=== PATIENT | female | born 2000 | race African-American/Black ===

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

== ENCOUNTER 2021-03-29 10:21 | Emergency (ER) | payer MEDICAID, OTHER ==
[~2021-03-29] VITALS: Ht 182.9 cm; Wt 59.1 kg
[2021-03-29 10:23] VITALS: BP 125/77
--- NOTE | 2021-03-29 11:44 | NUR ---
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
[2021-03-29] MEDS ORDERED: COVID-19 VACC,MRNA(MODERNA)/PF 100 MCG/0.5ML IM-VACC ONE ×2 (12:00)
[2021-03-29] MEDS ORDERED: HYDROcodone/APAP 5/325 TABLET ONE (12:04)
[2021-03-29] MEDS ORDERED: HYDROcodone/APAP 5/325 TABLET PO ONE (12:30)
== END 2021-03-29 12:40 | disposition home or self-care (01) ==
LOC: ED 12:34
DX: H66.002 Acute suppurative otitis media without spontaneous rupture of ear drum, left ear (principal); Z23 Encounter for immunization
CPT/HCPCS: 0011A; 91301; 99283